=== PATIENT | male | born 1970 | race African-American/Black ===

== ENCOUNTER 2016-10-10 11:04 | Inpatient (IN) | payer OTHER ==
[2016-10-10 11:49] VITALS: BMI 25.8
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
[2016-10-10] MEDS ORDERED: P-EPHED 60MG/TRIPROLIDI 2.5MG TABLET PO PRN (13:49)
[2016-10-10] MEDS ORDERED: guaiFENesin/D-METHORPHAN HB 10 ML UNIT-DOSE CUPS PO PRN (13:49)
[2016-10-10] MEDS ORDERED: MENTHOL/PHENOL 1 EACH UD MM PRN (13:49)
[2016-10-10] MEDS ORDERED: LOPERAMIDE HCL 2 MG CAPSULE PO PRN (13:49)
[2016-10-10] MEDS ORDERED: MAGNESIUM CITRATE 300 ML BOTTLE PO PRN (13:49)
[2016-10-10] MEDS ORDERED: MAG HYDROX/AL HYDROX/SIMETH 30 ML UNIT-DOSE CUP PO PRN (13:49)
[2016-10-10] MEDS ORDERED: NICOTINE POLACRILEX 4 MG GUM BUC PRN (13:49)
[2016-10-10] MEDS ORDERED: MAGNESIUM HYDROX 2400MG/30ML ORAL SUSPENSION 30 ML CUP PO PRN (13:49)
[2016-10-10] MEDS ORDERED: TUBERCULIN PPD 5 TU/0.1ML VIAL ID ONE (15:52)
[2016-10-10] MEDS: NICOTINE 21 MG/24 HOURS TOPICAL PATCH TD SCH (15:55)
[2016-10-10] MEDS ORDERED: DRONABINOL 2.5 MG CAPSULE PO SCH (17:00)
[2016-10-10] MEDS: INSULIN SLIDING SCALE (NOVOLOG) 1 VIAL SQ SCH ×2 (17:03→21:28)
[2016-10-10] MEDS ORDERED: INSULIN (NOVOLOG) ASPART 100 UNITS/ML 10ML VIAL ONE ×2 (17:03→21:28)
[2016-10-10] MEDS: valACYclovir HCL 500 MG TABLET (FP) PO SCH (17:05)
[2016-10-10 20:01] LABS: MCH 27.4 pg (25.7-33.7); MCHC 33.5 g/dl (32.0-35.9); MEAN CELL VOLUME 81.6 fl (80-96); MEAN PLT VOLUME 10.5 fl (7.5-11.1); PLATELET COUNT 163 K/MM3 (134-434); WHITE BLOOD COUNT 3.5 K/mm3 (4.0-10.0)
[2016-10-10 20:05] LABS: URINE APPEARANCE CLEAR; URINE BILIRUBIN NEGATIVE (NEGATIVE); URINE BLOOD NEGATIVE (NEGATIVE); URINE COLOR LTYELLOW; URINE GLUCOSE (UA) 3+ (NEGATIVE); URINE KETONE TRACE (NEGATIVE); URINE LEUK ESTERASE NEGATIVE (NEGATIVE); URINE NITRITE NEGATIVE (NEGATIVE); URINE UROBILINOGEN NEGATIVE E.U./dl (0.2-1.0)
[2016-10-10 20:06] LABS: URINE PROTEIN 2+ (NEGATIVE)
[2016-10-10 20:10] LABS: URINE MUCUS RARE; URINE WBC 2 /hpf (3-5)
[2016-10-10 20:31] LABS: ALBUMIN 3.7 g/dl (3.4-5.0); ANION GAP 10 (8-16); CALCIUM 9.3 mg/dL (8.5-10.1); CO2 27 mmol/L (21-32); CREATININE 0.9 mg/dL (0.7-1.3); SGOT/AST 23 U/L (15-37); SGPT/ALT 24 U/L (12-78)
[2016-10-10 20:33] LABS: ALK PHOS 116 U/L (45-117); BILIRUBIN,TOTAL 0.4 mg/dL (0.2-1.0); TOT PROT 7.5 g/dl (6.4-8.2)
[2016-10-10 21:05] LABS: GLUCOSE,RANDOM 343 mg/dL (74-106)
[2016-10-10] MEDS: diphenhydrAMINE HCL 50 MG CAPSULE PO PRN (21:29)
[2016-10-10] MEDS: ABACAVIR SULFATE 300 MG TABLET PO SCH (21:29)
[2016-10-10] MEDS: RALTEGRAVIR POTASSIUM 400 MG TAB PO SCH (21:29)
[2016-10-10] MEDS: THIAMINE HCL 100 MG TABLET (FP) PO SCH (21:29)
[2016-10-10] MEDS: INSULIN DETEMIR 100 UNITS/ML MDV SQ SCH (21:30)
[2016-10-11] MEDS: sitaGLIPtin PHOSPHATE 100 MG TABLET (FP) PO SCH (06:44)
[2016-10-11] MEDS: INSULIN SLIDING SCALE (NOVOLOG) 1 VIAL SQ SCH ×4 (06:45→22:30)
[2016-10-11] MEDS ORDERED: INSULIN (NOVOLOG) ASPART 100 UNITS/ML 10ML VIAL ONE ×4 (07:00→23:08)
--- NOTE | 2016-10-11 09:46 | EKG ---
Test Reason : Blood Pressure : / mmHG Vent. Rate : 076 BPM Atrial Rate : 076 BPM P-R Int : 154 ms QRS Dur : 098 ms QT Int : 386 ms P-R-T Axes : 036 046 044 degrees QTc Int : 434 ms NORMAL SINUS RHYTHM NONSPECIFIC T WAVE ABNORMALITY ABNORMAL ECG NO PREVIOUS ECGS AVAILABLE Confirmed by MADHU JOHNSON MD ([id number]) on 10/11/2016 9:45:35 AM Referred By: Criselda MELTON Confirmed By:MADHU JOHNSON MD
[2016-10-11] MEDS: PRENATAL VITAMINS W/ FOLIC ACID TABLET (FP) PO SCH (09:51)
[2016-10-11] MEDS: ABACAVIR SULFATE 300 MG TABLET PO SCH ×2 (09:53→22:25)
[2016-10-11] MEDS: RALTEGRAVIR POTASSIUM 400 MG TAB PO SCH ×2 (09:53→22:25)
[2016-10-11] MEDS: valACYclovir HCL 500 MG TABLET (FP) PO SCH (09:53)
[2016-10-11] MEDS: NICOTINE 21 MG/24 HOURS TOPICAL PATCH TD SCH (09:54)
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
[2016-10-11] MEDS: GABAPENTIN 100 MG CAPSULE (FP) PO SCH (22:25)
[2016-10-11] MEDS: THIAMINE HCL 100 MG TABLET (FP) PO SCH (22:25)
[2016-10-11] MEDS: INSULIN DETEMIR 100 UNITS/ML MDV SQ SCH (22:31)
[2016-10-11] MEDS: hydrOXYzine PAMOATE 50 MG CAPSULE (FP) PO PRN (22:32)
[2016-10-12] MEDS ORDERED: INSULIN (NOVOLOG) ASPART 100 UNITS/ML 10ML VIAL ONE ×2 (05:56→22:57)
[2016-10-12] MEDS: INSULIN SLIDING SCALE (NOVOLOG) 1 VIAL SQ SCH ×4 (06:25→21:22)
[2016-10-12] MEDS: GABAPENTIN 100 MG CAPSULE (FP) PO SCH ×3 (06:25→21:17)
[2016-10-12] MEDS: sitaGLIPtin PHOSPHATE 100 MG TABLET (FP) PO SCH (06:25)
[2016-10-12] MEDS: hydrOXYzine PAMOATE 50 MG CAPSULE (FP) PO PRN ×2 (06:26→21:18)
[2016-10-12] MEDS: NICOTINE 21 MG/24 HOURS TOPICAL PATCH TD SCH (09:42)
[2016-10-12] MEDS: PRENATAL VITAMINS W/ FOLIC ACID TABLET (FP) PO SCH (09:42)
[2016-10-12] MEDS: ABACAVIR SULFATE 300 MG TABLET PO SCH ×2 (09:42→21:17)
[2016-10-12] MEDS: RALTEGRAVIR POTASSIUM 400 MG TAB PO SCH ×2 (09:42→21:17)
[2016-10-12] MEDS: valACYclovir HCL 500 MG TABLET (FP) PO SCH (09:42)
[2016-10-12] MEDS: THIAMINE HCL 100 MG TABLET (FP) PO SCH (21:17)
[2016-10-12] MEDS: INSULIN DETEMIR 100 UNITS/ML MDV SQ SCH (21:22)
[2016-10-13] MEDS: sitaGLIPtin PHOSPHATE 100 MG TABLET (FP) PO SCH (06:09)
[2016-10-13] MEDS: GABAPENTIN 100 MG CAPSULE (FP) PO SCH ×3 (06:10→21:13)
[2016-10-13] MEDS ORDERED: INSULIN (NOVOLOG) ASPART 100 UNITS/ML 10ML VIAL ONE ×3 (06:56→18:11)
[2016-10-13] MEDS: INSULIN SLIDING SCALE (NOVOLOG) 1 VIAL SQ SCH ×4 (07:00→21:11)
[2016-10-13] MEDS: IBUPROFEN 400 MG TABLET (FP) PO PRN ×2 (09:06→21:13)
[2016-10-13] MEDS: ABACAVIR SULFATE 300 MG TABLET PO SCH ×2 (09:55→21:13)
[2016-10-13] MEDS: valACYclovir HCL 500 MG TABLET (FP) PO SCH (09:55)
[2016-10-13] MEDS: RALTEGRAVIR POTASSIUM 400 MG TAB PO SCH ×2 (09:55→21:13)
[2016-10-13] MEDS: PRENATAL VITAMINS W/ FOLIC ACID TABLET (FP) PO SCH (09:56)
[2016-10-13] MEDS: NICOTINE 21 MG/24 HOURS TOPICAL PATCH TD SCH (09:56)
[2016-10-13] MEDS: ACETAMINOPHEN 325 MG TABLET (FP) PO PRN (09:58)
[2016-10-13] MEDS: hydrOXYzine PAMOATE 50 MG CAPSULE (FP) PO PRN ×2 (16:41→21:13)
[2016-10-13] MEDS: THIAMINE HCL 100 MG TABLET (FP) PO SCH (21:13)
[2016-10-13] MEDS: INSULIN DETEMIR 100 UNITS/ML MDV SQ SCH (21:15)
[2016-10-14] MEDS: INSULIN SLIDING SCALE (NOVOLOG) 1 VIAL SQ SCH ×4 (06:43→21:21)
[2016-10-14] MEDS: GABAPENTIN 100 MG CAPSULE (FP) PO SCH ×3 (06:48→21:18)
[2016-10-14] MEDS: sitaGLIPtin PHOSPHATE 100 MG TABLET (FP) PO SCH (06:48)
[2016-10-14] MEDS ORDERED: PT OWN MED DRAWER 7, Y5N ONE (10:12)
[2016-10-14] MEDS: PRENATAL VITAMINS W/ FOLIC ACID TABLET (FP) PO SCH (11:08)
[2016-10-14] MEDS: RALTEGRAVIR POTASSIUM 400 MG TAB PO SCH ×2 (11:08→21:18)
[2016-10-14] MEDS: valACYclovir HCL 500 MG TABLET (FP) PO SCH (11:08)
[2016-10-14] MEDS: NICOTINE 21 MG/24 HOURS TOPICAL PATCH TD SCH (11:09)
[2016-10-14] MEDS: ABACAVIR SULFATE 300 MG TABLET PO SCH ×2 (11:09→21:18)
[2016-10-14] MEDS: ACETAMINOPHEN 325 MG TABLET (FP) PO PRN ×2 (11:12→21:24)
[2016-10-14] MEDS: hydrOXYzine PAMOATE 50 MG CAPSULE (FP) PO PRN ×2 (11:13→21:24)
--- NOTE | 2016-10-14 11:37 | PN ---
[facility] Progress Note Note: anusol hc cream for hemorrhoids,avoid constipation
[2016-10-14] MEDS ORDERED: INSULIN (NOVOLOG) ASPART 100 UNITS/ML 10ML VIAL ONE ×2 (11:45→22:40)
[2016-10-14] MEDS: HYDROCORTISONE 2.5% TOPICAL CREAM 30 GM TUBE TP SCH ×2 (14:19→21:18)
[2016-10-14] MEDS: IBUPROFEN 400 MG TABLET (FP) PO PRN (18:24)
[2016-10-14] MEDS: THIAMINE HCL 100 MG TABLET (FP) PO SCH (21:18)
[2016-10-14] MEDS: INSULIN DETEMIR 100 UNITS/ML MDV SQ SCH (21:21)
[2016-10-15] MEDS: GABAPENTIN 100 MG CAPSULE (FP) PO SCH ×3 (06:16→21:27)
[2016-10-15] MEDS: sitaGLIPtin PHOSPHATE 100 MG TABLET (FP) PO SCH (06:16)
[2016-10-15] MEDS: INSULIN SLIDING SCALE (NOVOLOG) 1 VIAL SQ SCH ×4 (06:17→21:26)
[2016-10-15] MEDS ORDERED: INSULIN (NOVOLOG) ASPART 100 UNITS/ML 10ML VIAL ONE ×3 (06:59→17:05)
[2016-10-15] MEDS: IBUPROFEN 400 MG TABLET (FP) PO PRN ×2 (08:44→16:57)
[2016-10-15] MEDS: ABACAVIR SULFATE 300 MG TABLET PO SCH ×2 (10:12→21:27)
[2016-10-15] MEDS: valACYclovir HCL 500 MG TABLET (FP) PO SCH (10:12)
[2016-10-15] MEDS: PRENATAL VITAMINS W/ FOLIC ACID TABLET (FP) PO SCH (10:13)
[2016-10-15] MEDS: NICOTINE 21 MG/24 HOURS TOPICAL PATCH TD SCH (10:13)
[2016-10-15] MEDS: RALTEGRAVIR POTASSIUM 400 MG TAB PO SCH ×2 (10:13→21:27)
[2016-10-15] MEDS: HYDROCORTISONE 2.5% TOPICAL CREAM 30 GM TUBE TP SCH ×2 (10:15→21:29)
[2016-10-15] MEDS: ACETAMINOPHEN 325 MG TABLET (FP) PO PRN ×2 (10:16→21:28)
[2016-10-15] MEDS: hydrOXYzine PAMOATE 50 MG CAPSULE (FP) PO PRN (21:27)
[2016-10-15] MEDS: THIAMINE HCL 100 MG TABLET (FP) PO SCH (21:27)
[2016-10-15] MEDS: INSULIN DETEMIR 100 UNITS/ML MDV SQ SCH (21:29)
[2016-10-16] MEDS: GABAPENTIN 100 MG CAPSULE (FP) PO SCH ×3 (06:18→21:16)
[2016-10-16] MEDS: sitaGLIPtin PHOSPHATE 100 MG TABLET (FP) PO SCH (06:18)
[2016-10-16] MEDS: INSULIN SLIDING SCALE (NOVOLOG) 1 VIAL SQ SCH ×4 (06:18→21:15)
[2016-10-16] MEDS: PRENATAL VITAMINS W/ FOLIC ACID TABLET (FP) PO SCH (09:54)
[2016-10-16] MEDS: ABACAVIR SULFATE 300 MG TABLET PO SCH ×2 (09:54→21:16)
[2016-10-16] MEDS: RALTEGRAVIR POTASSIUM 400 MG TAB PO SCH ×2 (09:54→21:16)
[2016-10-16] MEDS: HYDROCORTISONE 2.5% TOPICAL CREAM 30 GM TUBE TP SCH ×2 (09:55→21:17)
[2016-10-16] MEDS: NICOTINE 21 MG/24 HOURS TOPICAL PATCH TD SCH (09:55)
[2016-10-16] MEDS: valACYclovir HCL 500 MG TABLET (FP) PO SCH (09:55)
[2016-10-16] MEDS: IBUPROFEN 400 MG TABLET (FP) PO PRN (09:57)
[2016-10-16] MEDS ORDERED: INSULIN (NOVOLOG) ASPART 100 UNITS/ML 10ML VIAL ONE ×2 (11:46→22:06)
[2016-10-16] MEDS: THIAMINE HCL 100 MG TABLET (FP) PO SCH (21:16)
[2016-10-16] MEDS: INSULIN DETEMIR 100 UNITS/ML MDV SQ SCH (21:17)
[2016-10-17] MEDS: sitaGLIPtin PHOSPHATE 100 MG TABLET (FP) PO SCH (06:05)
[2016-10-17] MEDS: GABAPENTIN 100 MG CAPSULE (FP) PO SCH ×3 (06:05→21:27)
[2016-10-17] MEDS: INSULIN SLIDING SCALE (NOVOLOG) 1 VIAL SQ SCH ×4 (06:05→21:25)
[2016-10-17] MEDS ORDERED: INSULIN (NOVOLOG) ASPART 100 UNITS/ML 10ML VIAL ONE ×5 (06:46→21:24)
[2016-10-17] MEDS: PRENATAL VITAMINS W/ FOLIC ACID TABLET (FP) PO SCH (10:03)
[2016-10-17] MEDS: HYDROCORTISONE 2.5% TOPICAL CREAM 30 GM TUBE TP SCH ×2 (10:03→21:29)
[2016-10-17] MEDS: ABACAVIR SULFATE 300 MG TABLET PO SCH ×2 (10:03→21:27)
[2016-10-17] MEDS: valACYclovir HCL 500 MG TABLET (FP) PO SCH (10:03)
[2016-10-17] MEDS: RALTEGRAVIR POTASSIUM 400 MG TAB PO SCH ×2 (10:03→21:27)
[2016-10-17] MEDS: NICOTINE 21 MG/24 HOURS TOPICAL PATCH TD SCH (10:04)
[2016-10-17] MEDS: IBUPROFEN 400 MG TABLET (FP) PO PRN ×2 (14:14→21:26)
[2016-10-17] MEDS: hydrOXYzine PAMOATE 50 MG CAPSULE (FP) PO PRN (21:27)
[2016-10-17] MEDS: THIAMINE HCL 100 MG TABLET (FP) PO SCH (21:27)
[2016-10-17] MEDS: INSULIN DETEMIR 100 UNITS/ML MDV SQ SCH (21:29)
[2016-10-18] MEDS: GABAPENTIN 100 MG CAPSULE (FP) PO SCH ×3 (05:51→21:28)
[2016-10-18] MEDS ORDERED: INSULIN (NOVOLOG) ASPART 100 UNITS/ML 10ML VIAL ONE ×4 (06:08→22:26)
[2016-10-18] MEDS: INSULIN SLIDING SCALE (NOVOLOG) 1 VIAL SQ SCH ×4 (06:39→21:27)
[2016-10-18] MEDS: sitaGLIPtin PHOSPHATE 100 MG TABLET (FP) PO SCH (06:41)
[2016-10-18] MEDS: valACYclovir HCL 500 MG TABLET (FP) PO SCH (09:48)
[2016-10-18] MEDS: PRENATAL VITAMINS W/ FOLIC ACID TABLET (FP) PO SCH (09:48)
[2016-10-18] MEDS: ABACAVIR SULFATE 300 MG TABLET PO SCH ×2 (09:48→21:28)
[2016-10-18] MEDS: RALTEGRAVIR POTASSIUM 400 MG TAB PO SCH ×2 (09:48→21:28)
[2016-10-18] MEDS: HYDROCORTISONE 2.5% TOPICAL CREAM 30 GM TUBE TP SCH ×2 (09:48→21:28)
[2016-10-18] MEDS: NICOTINE 21 MG/24 HOURS TOPICAL PATCH TD SCH (09:49)
[2016-10-18] MEDS: IBUPROFEN 400 MG TABLET (FP) PO PRN ×2 (09:50→21:31)
[2016-10-18] MEDS: DOCUSATE SODIUM 100 MG CAPSULE (FP) PO SCH ×2 (14:20→21:28)
[2016-10-18] MEDS ORDERED: INSULIN DETEMIR 100 UNITS/ML MDV SQ ONE (17:03)
[2016-10-18] MEDS: INSULIN DETEMIR 100 UNITS/ML MDV SQ SCH (21:27)
[2016-10-18] MEDS: THIAMINE HCL 100 MG TABLET (FP) PO SCH (21:29)
[2016-10-18] MEDS: hydrOXYzine PAMOATE 50 MG CAPSULE (FP) PO PRN (21:31)
[2016-10-19] MEDS: INSULIN SLIDING SCALE (NOVOLOG) 1 VIAL SQ SCH ×4 (06:14→23:38)
[2016-10-19] MEDS: sitaGLIPtin PHOSPHATE 100 MG TABLET (FP) PO SCH (06:14)
[2016-10-19] MEDS: GABAPENTIN 100 MG CAPSULE (FP) PO SCH ×3 (06:14→21:38)
[2016-10-19] MEDS: DOCUSATE SODIUM 100 MG CAPSULE (FP) PO SCH ×3 (06:14→21:38)
[2016-10-19] MEDS ORDERED: INSULIN (NOVOLOG) ASPART 100 UNITS/ML 10ML VIAL ONE ×2 (06:49→16:55)
[2016-10-19] MEDS: ABACAVIR SULFATE 300 MG TABLET PO SCH ×2 (09:45→21:38)
[2016-10-19] MEDS: HYDROCORTISONE 2.5% TOPICAL CREAM 30 GM TUBE TP SCH ×2 (09:45→23:14)
[2016-10-19] MEDS: PRENATAL VITAMINS W/ FOLIC ACID TABLET (FP) PO SCH (09:45)
[2016-10-19] MEDS: NICOTINE 21 MG/24 HOURS TOPICAL PATCH TD SCH (09:45)
[2016-10-19] MEDS: RALTEGRAVIR POTASSIUM 400 MG TAB PO SCH ×2 (09:45→21:38)
[2016-10-19] MEDS: valACYclovir HCL 500 MG TABLET (FP) PO SCH (09:45)
[2016-10-19] MEDS: IBUPROFEN 400 MG TABLET (FP) PO PRN ×2 (09:46→21:40)
[2016-10-19] MEDS: THIAMINE HCL 100 MG TABLET (FP) PO SCH (21:38)
[2016-10-19] MEDS: hydrOXYzine PAMOATE 50 MG CAPSULE (FP) PO PRN (21:40)
[2016-10-19] MEDS: INSULIN DETEMIR 100 UNITS/ML MDV SQ SCH (23:16)
[2016-10-20] MEDS: sitaGLIPtin PHOSPHATE 100 MG TABLET (FP) PO SCH (06:31)
[2016-10-20] MEDS: DOCUSATE SODIUM 100 MG CAPSULE (FP) PO SCH ×3 (06:31→21:20)
[2016-10-20] MEDS: INSULIN SLIDING SCALE (NOVOLOG) 1 VIAL SQ SCH ×4 (06:31→21:19)
[2016-10-20] MEDS: GABAPENTIN 100 MG CAPSULE (FP) PO SCH ×3 (06:31→21:21)
[2016-10-20] MEDS ORDERED: INSULIN (NOVOLOG) ASPART 100 UNITS/ML 10ML VIAL ONE ×4 (06:49→21:19)
[2016-10-20] MEDS: valACYclovir HCL 500 MG TABLET (FP) PO SCH (10:00)
[2016-10-20] MEDS: HYDROCORTISONE 2.5% TOPICAL CREAM 30 GM TUBE TP SCH ×2 (10:01→21:19)
[2016-10-20] MEDS: PRENATAL VITAMINS W/ FOLIC ACID TABLET (FP) PO SCH (10:01)
[2016-10-20] MEDS: RALTEGRAVIR POTASSIUM 400 MG TAB PO SCH ×2 (10:01→21:20)
[2016-10-20] MEDS: IBUPROFEN 400 MG TABLET (FP) PO PRN ×2 (10:02→21:20)
[2016-10-20] MEDS: ABACAVIR SULFATE 300 MG TABLET PO SCH ×2 (10:04→21:21)
[2016-10-20] MEDS: NICOTINE 21 MG/24 HOURS TOPICAL PATCH TD SCH (10:04)
[2016-10-20] MEDS: THIAMINE HCL 100 MG TABLET (FP) PO SCH (21:20)
[2016-10-20] MEDS: hydrOXYzine PAMOATE 50 MG CAPSULE (FP) PO PRN (21:21)
[2016-10-20] MEDS: INSULIN DETEMIR 100 UNITS/ML MDV SQ SCH (22:13)
[2016-10-21] MEDS ORDERED: INSULIN (NOVOLOG) ASPART 100 UNITS/ML 10ML VIAL ONE ×4 (05:42→21:01)
[2016-10-21] MEDS: DOCUSATE SODIUM 100 MG CAPSULE (FP) PO SCH ×3 (05:43→21:27)
[2016-10-21] MEDS: GABAPENTIN 100 MG CAPSULE (FP) PO SCH ×3 (05:43→21:27)
[2016-10-21] MEDS: INSULIN SLIDING SCALE (NOVOLOG) 1 VIAL SQ SCH ×4 (06:53→21:30)
[2016-10-21] MEDS: sitaGLIPtin PHOSPHATE 100 MG TABLET (FP) PO SCH (06:53)
[2016-10-21] MEDS: HYDROCORTISONE 2.5% TOPICAL CREAM 30 GM TUBE TP SCH ×2 (10:11→21:27)
[2016-10-21] MEDS: ABACAVIR SULFATE 300 MG TABLET PO SCH ×2 (10:11→21:31)
[2016-10-21] MEDS: valACYclovir HCL 500 MG TABLET (FP) PO SCH (10:11)
[2016-10-21] MEDS: RALTEGRAVIR POTASSIUM 400 MG TAB PO SCH ×2 (10:11→21:27)
[2016-10-21] MEDS: NICOTINE 21 MG/24 HOURS TOPICAL PATCH TD SCH (10:11)
[2016-10-21] MEDS: PRENATAL VITAMINS W/ FOLIC ACID TABLET (FP) PO SCH (10:11)
[2016-10-21] MEDS: THIAMINE HCL 100 MG TABLET (FP) PO SCH (21:27)
[2016-10-21] MEDS: hydrOXYzine PAMOATE 50 MG CAPSULE (FP) PO PRN (21:29)
[2016-10-21] MEDS: INSULIN DETEMIR 100 UNITS/ML MDV SQ SCH (22:22)
[2016-10-22] MEDS: diphenhydrAMINE HCL 50 MG CAPSULE PO PRN (01:36)
[2016-10-22] MEDS: GABAPENTIN 100 MG CAPSULE (FP) PO SCH ×3 (05:54→21:19)
[2016-10-22] MEDS: DOCUSATE SODIUM 100 MG CAPSULE (FP) PO SCH ×3 (05:54→21:18)
[2016-10-22] MEDS ORDERED: INSULIN (NOVOLOG) ASPART 100 UNITS/ML 10ML VIAL ONE ×4 (06:24→20:56)
[2016-10-22] MEDS: sitaGLIPtin PHOSPHATE 100 MG TABLET (FP) PO SCH (06:40)
[2016-10-22] MEDS: INSULIN SLIDING SCALE (NOVOLOG) 1 VIAL SQ SCH ×4 (06:40→21:23)
[2016-10-22] MEDS: valACYclovir HCL 500 MG TABLET (FP) PO SCH (09:48)
[2016-10-22] MEDS: HYDROCORTISONE 2.5% TOPICAL CREAM 30 GM TUBE TP SCH ×2 (09:48→21:18)
[2016-10-22] MEDS: ABACAVIR SULFATE 300 MG TABLET PO SCH ×2 (09:48→21:19)
[2016-10-22] MEDS: RALTEGRAVIR POTASSIUM 400 MG TAB PO SCH ×2 (09:48→21:18)
[2016-10-22] MEDS: PRENATAL VITAMINS W/ FOLIC ACID TABLET (FP) PO SCH (09:48)
[2016-10-22] MEDS: NICOTINE 21 MG/24 HOURS TOPICAL PATCH TD SCH (09:49)
[2016-10-22] MEDS: hydrOXYzine PAMOATE 50 MG CAPSULE (FP) PO PRN (09:50)
[2016-10-22] MEDS: FLUCONAZOLE 100 MG TABLET (UD) PO SCH (14:12)
[2016-10-22] MEDS: TOLNAFTATE 1% CREAM 15 GM TUBE TP SCH ×2 (14:13→21:21)
[2016-10-22] MEDS: INSULIN DETEMIR 100 UNITS/ML MDV SQ SCH (21:24)
[2016-10-22] MEDS: THIAMINE HCL 100 MG TABLET (FP) PO SCH (21:35)
[2016-10-23] MEDS: hydrOXYzine PAMOATE 50 MG CAPSULE (FP) PO PRN ×2 (03:38→19:57)
[2016-10-23] MEDS: sitaGLIPtin PHOSPHATE 100 MG TABLET (FP) PO SCH (06:19)
[2016-10-23] MEDS: DOCUSATE SODIUM 100 MG CAPSULE (FP) PO SCH ×3 (06:19→21:02)
[2016-10-23] MEDS: INSULIN SLIDING SCALE (NOVOLOG) 1 VIAL SQ SCH ×4 (06:19→21:02)
[2016-10-23] MEDS: GABAPENTIN 100 MG CAPSULE (FP) PO SCH (06:19)
[2016-10-23] MEDS ORDERED: INSULIN (NOVOLOG) ASPART 100 UNITS/ML 10ML VIAL ONE ×4 (06:39→20:25)
[2016-10-23] MEDS: RALTEGRAVIR POTASSIUM 400 MG TAB PO SCH ×2 (09:57→21:02)
[2016-10-23] MEDS: valACYclovir HCL 500 MG TABLET (FP) PO SCH (09:57)
[2016-10-23] MEDS: ABACAVIR SULFATE 300 MG TABLET PO SCH ×2 (09:57→21:01)
[2016-10-23] MEDS: FLUCONAZOLE 100 MG TABLET (UD) PO SCH (09:58)
[2016-10-23] MEDS: NICOTINE 21 MG/24 HOURS TOPICAL PATCH TD SCH (09:58)
[2016-10-23] MEDS: PRENATAL VITAMINS W/ FOLIC ACID TABLET (FP) PO SCH (09:58)
[2016-10-23] MEDS: HYDROCORTISONE 2.5% TOPICAL CREAM 30 GM TUBE TP SCH ×2 (10:00→21:34)
[2016-10-23] MEDS: TOLNAFTATE 1% CREAM 15 GM TUBE TP SCH ×2 (10:00→21:35)
--- NOTE | 2016-10-23 11:55 | PN ---
Psychiatric Progress Note Vital Signs: Vital Signs Period Temp Pulse Resp BP Sys/Malik Pulse Ox Last 24 Hr 97.9 F 83 18-18 136/78 Date of Session: 10/23/16 Chief Complaint:: progress update HPI: Patient is addressing alcohol, nicotine dependence comorbid substance induced anxiety disorder. ROS: HIV+ since 1986, DM medically managed Current Medications: Active Medications Generic Name Dose Route Start Last Admin Trade Name Freq PRN Reason Stop Dose Admin Abacavir Sulfate 300 mg 10/10/16 22:00 10/23/16 09:57 Ziagen - PO 300 mg BID TERESA Administration Acetaminophen 650 mg 10/10/16 13:49 10/15/16 21:28 Tylenol - PO 650 mg Q4H PRN Administration PAIN Al Hydroxide/Mg Hydroxide 30 ml 10/10/16 13:49 10/21/16 03:45 Mylanta Oral Suspension - PO 30 ml Q6H PRN Administration DYSPEPSIA Diphenhydramine HCl 50 mg 10/10/16 13:49 10/22/16 01:36 Benadryl - PO 50 mg HSMR1 PRN Administration INSOMNIA Docusate Sodium 100 mg 10/18/16 14:00 10/23/16 06:19 Colace - PO 100 mg TID TERESA Administration Eucalyptus/Menthol/Phenol/Sorbitol 1 each 10/10/16 13:49 Cepastat Lozenge - MM Q4H PRN SORE THROAT Fluconazole 100 mg 10/22/16 13:48 10/23/16 09:58 Diflucan - PO 100 mg DAILY TERESA Administration Gabapentin 300 mg 10/23/16 11:39 Neurontin - PO TID TERESA Guaifenesin 10 ml 10/10/16 13:49 Robitussin Dm - PO Q6H PRN COUGH Hydrocortisone 1 applic 10/14/16 11:45 10/23/16 10:00 Anusol 2.5% Hc Cream - TP Not Given BID TERESA Hydroxyzine Pamoate 50 mg 10/11/16 14:05 10/23/16 03:38 Vistaril - PO 50 mg Q4H PRN Administration ANXIETY Ibuprofen 400 mg 10/10/16 13:49 10/20/16 21:20 Motrin - PO 400 mg Q6H PRN Administration SEVERE PAIN Insulin Aspart 1 vial 10/10/16 16:30 10/23/16 06:19 Novolog Vial Sliding Scale - SQ 4 unit ACHS TERESA Administration Protocol Insulin Detemir 70 units 10/10/16 22:00 10/22/16 21:24 Levemir Vial SQ 70 unit HS TERESA Administration Lamivudine 300 mg 10/11/16 10:00 10/23/16 09:58 Epivir - PO 300 mg DAILY TERESA Administration Loperamide HCl 4 mg 10/10/16 13:49 10/15/16 06:18 Imodium - PO 4 mg Q6H PRN Administration DIARRHEA Magnesium Citrate 300 ml 10/10/16 13:49 Citroma - PO Q48H PRN CONSTIPATION Magnesium Hydroxide 30 ml 10/10/16 13:49 10/13/16 06:59 Milk Of Magnesia - PO 30 ml DAILY PRN Administration CONSTIPATION Nicotine 21 mg 10/10/16 14:25 10/23/16 09:58 Nicoderm Patch - TD Not Given DAILY TERESA Nicotine Polacrilex 4 mg 10/10/16 13:49 Nicorette Gum - BUC Q2H PRN NICOTINE REPLACEMENT RX Multivit/Folic Acid/Iron 1 tab 10/11/16 10:00 10/23/16 09:58 Vitamins (Sjr) - PO 1 tab DAILY TERESA Administration Pseudoephedrine/Triprolidine 1 combo 10/10/16 13:49 Actifed - PO TID PRN NASAL CONGESTION Raltegravir 400 mg 10/10/16 22:00 10/23/16 09:57 Isentress - PO 400 mg BID TERESA Administration Sitagliptin Phosphate 100 mg 10/11/16 07:00 10/23/16 06:19 Januvia - PO 100 mg DAILY@0700 TERESA Administration Thiamine HCl 100 mg 10/10/16 22:00 10/22/16 21:35 Vitamin B1 - PO 100 mg HS TERESA Administration Tolnaftate 1 applic 10/22/16 13:30 10/23/16 10:00 Tinactin 1% Cream - TP 1 applic BID TERESA Administration Valacyclovir HCl 1,000 mg 10/10/16 16:30 10/23/16 09:57 Valtrex - PO 1,000 mg DAILY TERESA Administration Medication(s) Change(s): add Belsomra 10 mg po hs, increase Gabapentin 300 mg po tid (indications and properties discussed) Current Side Effect: No Lab tests ordered: No Lab tests reviewed: Yes Provider note:: Patient was seen today, he mainly spoke about his interpesonal issues, his complicated relationship. He reports he feels anxious, "high energy ", states he gets upt in the middle of the nights with severe anxiety and unable to get back to sleep. He also discussed his aftercare plans. Ways to reduce anxiety discussed with the patient, psycheducation and supports provided.Treatment plan discussed , he agreed with recommendations, will continue to monitor progress. Total face to face time:: 35 Mental Status Exam - Mental Status Exam Alert and Oriented to: Time, Place, Person Cognitive Function: Good Patient Appearance: Well Groomed Mood: Anxious Affect: Appropriate, Mood Congruent Patient Behavior: Appropriate, Cooperative Speech Pattern: Clear, Appropriate Voice Loudness: Normal Thought Process: Intact, Goal Oriented Thought Disorder: Not Present Hallucinations: Denies Suicidal Ideation: Denies Homicidal Ideation: Denies Insight/Judgement: Fair Sleep: Poorly, Difficulty falling asleep Appetite: Good Muscle strength/Tone: Normal Gait/Station: Normal Psychiatric Treatment Plan - Problem List (1) AIDS (acquired immune deficiency syndrome) Current Visit: Yes (2) Type 2 diabetes mellitus Current Visit: Yes (3) Cocaine dependence Current Visit: Yes (4) Alcohol dependence Current Visit: Yes (5) Substance-induced anxiety disorder Current Visit: Yes
[2016-10-23] MEDS: GABAPENTIN 300 MG CAPSULE (FP) PO SCH ×2 (14:11→21:01)
[2016-10-23] MEDS: INSULIN DETEMIR 100 UNITS/ML MDV SQ SCH (21:02)
[2016-10-23] MEDS: SUVOREXANT 10 MG TABLET PO SCH (21:04)
[2016-10-23] MEDS: THIAMINE HCL 100 MG TABLET (FP) PO SCH (21:35)
[2016-10-24] MEDS: GABAPENTIN 300 MG CAPSULE (FP) PO SCH ×3 (06:09→21:10)
[2016-10-24] MEDS: INSULIN SLIDING SCALE (NOVOLOG) 1 VIAL SQ SCH ×4 (06:09→21:12)
[2016-10-24] MEDS: DOCUSATE SODIUM 100 MG CAPSULE (FP) PO SCH ×3 (06:09→21:11)
[2016-10-24] MEDS: sitaGLIPtin PHOSPHATE 100 MG TABLET (FP) PO SCH (06:09)
[2016-10-24] MEDS ORDERED: INSULIN (NOVOLOG) ASPART 100 UNITS/ML 10ML VIAL ONE ×4 (06:47→21:13)
[2016-10-24] MEDS: RALTEGRAVIR POTASSIUM 400 MG TAB PO SCH ×2 (10:08→21:10)
[2016-10-24] MEDS: PRENATAL VITAMINS W/ FOLIC ACID TABLET (FP) PO SCH (10:08)
[2016-10-24] MEDS: ABACAVIR SULFATE 300 MG TABLET PO SCH ×2 (10:08→21:10)
[2016-10-24] MEDS: valACYclovir HCL 500 MG TABLET (FP) PO SCH (10:08)
[2016-10-24] MEDS: FLUCONAZOLE 100 MG TABLET (UD) PO SCH (10:08)
[2016-10-24] MEDS: HYDROCORTISONE 2.5% TOPICAL CREAM 30 GM TUBE TP SCH ×2 (10:10→21:11)
[2016-10-24] MEDS: NICOTINE 21 MG/24 HOURS TOPICAL PATCH TD SCH (10:11)
[2016-10-24] MEDS: TOLNAFTATE 1% CREAM 15 GM TUBE TP SCH ×2 (10:11→21:11)
[2016-10-24] MEDS: INSULIN DETEMIR 100 UNITS/ML MDV SQ SCH (21:10)
[2016-10-24] MEDS: THIAMINE HCL 100 MG TABLET (FP) PO SCH (21:10)
[2016-10-24] MEDS: hydrOXYzine PAMOATE 50 MG CAPSULE (FP) PO PRN (21:12)
[2016-10-24] MEDS: SUVOREXANT 10 MG TABLET PO SCH (21:14)
[2016-10-25] MEDS: DOCUSATE SODIUM 100 MG CAPSULE (FP) PO SCH ×3 (06:28→21:23)
[2016-10-25] MEDS: sitaGLIPtin PHOSPHATE 100 MG TABLET (FP) PO SCH (06:28)
[2016-10-25] MEDS: GABAPENTIN 300 MG CAPSULE (FP) PO SCH ×3 (06:28→21:24)
[2016-10-25] MEDS: INSULIN SLIDING SCALE (NOVOLOG) 1 VIAL SQ SCH ×4 (06:29→23:22)
[2016-10-25] MEDS ORDERED: INSULIN (NOVOLOG) ASPART 100 UNITS/ML 10ML VIAL ONE ×2 (06:48→11:57)
[2016-10-25] MEDS: valACYclovir HCL 500 MG TABLET (FP) PO SCH (09:59)
[2016-10-25] MEDS: ABACAVIR SULFATE 300 MG TABLET PO SCH ×2 (10:00→21:23)
[2016-10-25] MEDS: TOLNAFTATE 1% CREAM 15 GM TUBE TP SCH ×2 (10:00→21:24)
[2016-10-25] MEDS: RALTEGRAVIR POTASSIUM 400 MG TAB PO SCH ×2 (10:00→21:23)
[2016-10-25] MEDS: HYDROCORTISONE 2.5% TOPICAL CREAM 30 GM TUBE TP SCH ×2 (10:00→21:27)
[2016-10-25] MEDS: FLUCONAZOLE 100 MG TABLET (UD) PO SCH (10:00)
[2016-10-25] MEDS: PRENATAL VITAMINS W/ FOLIC ACID TABLET (FP) PO SCH (10:00)
[2016-10-25] MEDS: NICOTINE 21 MG/24 HOURS TOPICAL PATCH TD SCH (10:00)
[2016-10-25] MEDS: BENZOCAINE 28 GM HEMORRHOIDAL OINTMENT PR PRN (18:32)
[2016-10-25] MEDS: THIAMINE HCL 100 MG TABLET (FP) PO SCH (21:23)
[2016-10-25] MEDS: SUVOREXANT 10 MG TABLET PO SCH (21:24)
[2016-10-25] MEDS: hydrOXYzine PAMOATE 50 MG CAPSULE (FP) PO PRN (21:26)
[2016-10-25] MEDS: INSULIN DETEMIR 100 UNITS/ML MDV SQ SCH (21:27)
[2016-10-26] MEDS: DOCUSATE SODIUM 100 MG CAPSULE (FP) PO SCH ×3 (06:09→21:32)
[2016-10-26] MEDS: sitaGLIPtin PHOSPHATE 100 MG TABLET (FP) PO SCH (06:09)
[2016-10-26] MEDS: GABAPENTIN 300 MG CAPSULE (FP) PO SCH ×3 (06:09→21:32)
[2016-10-26] MEDS ORDERED: INSULIN (NOVOLOG) ASPART 100 UNITS/ML 10ML VIAL ONE ×5 (06:10→21:36)
[2016-10-26] MEDS: INSULIN SLIDING SCALE (NOVOLOG) 1 VIAL SQ SCH ×4 (06:11→21:36)
[2016-10-26] MEDS: ABACAVIR SULFATE 300 MG TABLET PO SCH ×2 (09:43→21:32)
[2016-10-26] MEDS: PRENATAL VITAMINS W/ FOLIC ACID TABLET (FP) PO SCH (09:43)
[2016-10-26] MEDS: RALTEGRAVIR POTASSIUM 400 MG TAB PO SCH ×2 (09:43→21:32)
[2016-10-26] MEDS: FLUCONAZOLE 100 MG TABLET (UD) PO SCH (09:43)
[2016-10-26] MEDS: valACYclovir HCL 500 MG TABLET (FP) PO SCH (09:43)
[2016-10-26] MEDS: BENZOCAINE 28 GM HEMORRHOIDAL OINTMENT PR PRN ×2 (09:44→21:37)
[2016-10-26] MEDS: HYDROCORTISONE 2.5% TOPICAL CREAM 30 GM TUBE TP SCH ×2 (09:45→21:39)
[2016-10-26] MEDS: NICOTINE 21 MG/24 HOURS TOPICAL PATCH TD SCH (09:45)
[2016-10-26] MEDS: TOLNAFTATE 1% CREAM 15 GM TUBE TP SCH ×2 (09:46→22:06)
[2016-10-26] MEDS: THIAMINE HCL 100 MG TABLET (FP) PO SCH (21:32)
[2016-10-26] MEDS: SUVOREXANT 10 MG TABLET PO SCH (21:32)
[2016-10-26] MEDS: INSULIN DETEMIR 100 UNITS/ML MDV SQ SCH (21:33)
[2016-10-26] MEDS: hydrOXYzine PAMOATE 50 MG CAPSULE (FP) PO PRN (21:40)
[2016-10-27] MEDS: DOCUSATE SODIUM 100 MG CAPSULE (FP) PO SCH ×3 (06:04→21:06)
[2016-10-27] MEDS: sitaGLIPtin PHOSPHATE 100 MG TABLET (FP) PO SCH (06:04)
[2016-10-27] MEDS: GABAPENTIN 300 MG CAPSULE (FP) PO SCH ×3 (06:04→21:06)
[2016-10-27] MEDS: INSULIN SLIDING SCALE (NOVOLOG) 1 VIAL SQ SCH ×4 (06:05→21:09)
[2016-10-27] MEDS ORDERED: INSULIN (NOVOLOG) ASPART 100 UNITS/ML 10ML VIAL ONE ×5 (06:07→21:09)
[2016-10-27] MEDS: RALTEGRAVIR POTASSIUM 400 MG TAB PO SCH ×2 (09:49→21:06)
[2016-10-27] MEDS: PRENATAL VITAMINS W/ FOLIC ACID TABLET (FP) PO SCH (09:49)
[2016-10-27] MEDS: valACYclovir HCL 500 MG TABLET (FP) PO SCH (09:49)
[2016-10-27] MEDS: FLUCONAZOLE 100 MG TABLET (UD) PO SCH (09:49)
[2016-10-27] MEDS: NICOTINE 21 MG/24 HOURS TOPICAL PATCH TD SCH (09:50)
[2016-10-27] MEDS: ABACAVIR SULFATE 300 MG TABLET PO SCH ×2 (09:50→21:06)
[2016-10-27] MEDS: TOLNAFTATE 1% CREAM 15 GM TUBE TP SCH ×2 (09:52→21:11)
[2016-10-27] MEDS: BENZOCAINE 28 GM HEMORRHOIDAL OINTMENT PR PRN (09:52)
[2016-10-27] MEDS: HYDROCORTISONE 2.5% TOPICAL CREAM 30 GM TUBE TP SCH ×2 (09:52→21:11)
[2016-10-27] MEDS: THIAMINE HCL 100 MG TABLET (FP) PO SCH (21:06)
[2016-10-27] MEDS: SUVOREXANT 10 MG TABLET PO SCH (21:06)
[2016-10-27] MEDS: INSULIN DETEMIR 100 UNITS/ML MDV SQ SCH (21:07)
[2016-10-28 05:55] VITALS: TEMP 97.8
[2016-10-28] MEDS: sitaGLIPtin PHOSPHATE 100 MG TABLET (FP) PO SCH (06:07)
[2016-10-28] MEDS: GABAPENTIN 300 MG CAPSULE (FP) PO SCH (06:07)
[2016-10-28] MEDS: DOCUSATE SODIUM 100 MG CAPSULE (FP) PO SCH (06:07)
[2016-10-28] MEDS ORDERED: INSULIN (NOVOLOG) ASPART 100 UNITS/ML 10ML VIAL ONE ×2 (06:08→06:30)
[2016-10-28] MEDS: INSULIN SLIDING SCALE (NOVOLOG) 1 VIAL SQ SCH ×2 (06:24→10:10)
[2016-10-28] MEDS ORDERED: PT OWN MED DRAWER 7, Y5N ONE (08:31)
--- NOTE | 2016-10-28 09:57 | PN ---
Psychiatric Progress Note Vital Signs: Vital Signs Period Temp Pulse Resp BP Sys/Malik Pulse Ox Last 24 Hr 97.8 F 85 18-18 139/81 Date of Session: 10/28/16 Chief Complaint:: discharge visit HPI: Patient is addressing alcohol, nicotine dependence comorbid substance induced anxiety disorder. ROS: HIV+ since 1986, DM medically managed Current Medications: Active Medications Generic Name Dose Route Start Last Admin Trade Name Freq PRN Reason Stop Dose Admin Abacavir Sulfate 300 mg 10/10/16 22:00 10/27/16 21:06 Ziagen - PO 300 mg BID TERESA Administration Acetaminophen 650 mg 10/10/16 13:49 10/15/16 21:28 Tylenol - PO 650 mg Q4H PRN Administration PAIN Al Hydroxide/Mg Hydroxide 30 ml 10/10/16 13:49 10/21/16 03:45 Mylanta Oral Suspension - PO 30 ml Q6H PRN Administration DYSPEPSIA Benzocaine 1 applic 10/25/16 17:39 10/27/16 09:52 Americaine Ointment - [place] 1 applic PRN PRN Administration PAIN Diphenhydramine HCl 50 mg 10/10/16 13:49 10/22/16 01:36 Benadryl - PO 50 mg HSMR1 PRN Administration INSOMNIA Docusate Sodium 100 mg 10/18/16 14:00 10/28/16 06:07 Colace - PO 100 mg TID TERESA Administration Eucalyptus/Menthol/Phenol/Sorbitol 1 each 10/10/16 13:49 Cepastat Lozenge - MM Q4H PRN SORE THROAT Fluconazole 100 mg 10/22/16 13:48 10/27/16 09:49 Diflucan - PO 100 mg DAILY TERESA Administration Gabapentin 300 mg 10/23/16 14:00 10/28/16 06:07 Neurontin - PO 300 mg TID TERESA Administration Guaifenesin 10 ml 10/10/16 13:49 Robitussin Dm - PO Q6H PRN COUGH Hydrocortisone 1 applic 10/14/16 11:45 10/27/16 21:11 Anusol 2.5% Hc Cream - TP Not Given BID TERESA Hydroxyzine Pamoate 50 mg 10/11/16 14:05 10/26/16 21:40 Vistaril - PO 50 mg Q4H PRN Administration ANXIETY Ibuprofen 400 mg 10/10/16 13:49 10/20/16 21:20 Motrin - PO 400 mg Q6H PRN Administration SEVERE PAIN Insulin Aspart 1 vial 10/10/16 16:30 10/28/16 06:24 Novolog Vial Sliding Scale - SQ 4 unit ACHS TERESA Administration Protocol Insulin Detemir 70 units 10/10/16 22:00 10/27/16 21:07 Levemir Vial SQ 70 unit HS TERESA Administration Lamivudine 300 mg 10/11/16 10:00 10/27/16 09:49 Epivir - PO 300 mg DAILY TERESA Administration Loperamide HCl 4 mg 10/10/16 13:49 10/15/16 06:18 Imodium - PO 4 mg Q6H PRN Administration DIARRHEA Magnesium Citrate 300 ml 10/10/16 13:49 Citroma - PO Q48H PRN CONSTIPATION Magnesium Hydroxide 30 ml 10/10/16 13:49 10/13/16 06:59 Milk Of Magnesia - PO 30 ml DAILY PRN Administration CONSTIPATION Nicotine 21 mg 10/10/16 14:25 10/27/16 09:50 Nicoderm Patch - TD Not Given DAILY [facility] Nicotine Polacrilex 4 mg 10/10/16 13:49 Nicorette Gum - BUC Q2H PRN NICOTINE REPLACEMENT RX Multivit/Folic Acid/Iron 1 tab 10/11/16 10:00 10/27/16 09:49 Vitamins (Sjr) - PO 1 tab DAILY TERESA Administration Pseudoephedrine/Triprolidine 1 combo 10/10/16 13:49 Actifed - PO TID PRN NASAL CONGESTION Raltegravir 400 mg 10/10/16 22:00 10/27/16 21:06 Isentress - PO 400 mg BID TERESA Administration Sitagliptin Phosphate 100 mg 10/11/16 07:00 10/28/16 06:07 Januvia - PO 100 mg DAILY@0700 TERESA Administration Thiamine HCl 100 mg 10/10/16 22:00 10/27/16 21:06 Vitamin B1 - PO 100 mg HS TERESA Administration Tolnaftate 1 applic 10/22/16 13:30 10/27/16 21:11 Tinactin 1% Cream - TP Not Given BID TERESA Valacyclovir HCl 1,000 mg 10/10/16 16:30 10/27/16 09:49 Valtrex - PO 1,000 mg DAILY TERESA Administration Current Side Effect: No Lab tests ordered: No Lab tests reviewed: Yes Provider note:: Patient has completed today his treatment and met his goals, will continue to address his issues at [facility] Dependency outpatient treatment program. He gained insights into his addiction, understands the implications and consequences on his physical, mental health and importnace to achieve and maintain sobriety. Patient continues to finding that Neurontin being effective, he feels much better, less anxious. Scripts provided for 30 days, patient is stable for discharge. Total face to face time:: 35 Mental Status Exam - Mental Status Exam Alert and Oriented to: Time, Place, Person Cognitive Function: Good Patient Appearance: Well Groomed Mood: Hopeful Affect: Appropriate, Mood Congruent Patient Behavior: Appropriate, Cooperative Speech Pattern: Clear, Appropriate Voice Loudness: Normal Thought Process: Intact, Goal Oriented Thought Disorder: Not Present Hallucinations: Denies Suicidal Ideation: Denies Homicidal Ideation: Denies Insight/Judgement: Fair Sleep: Fair Appetite: Fair Muscle strength/Tone: Normal Gait/Station: Normal Psychiatric Treatment Plan - Problem List (1) AIDS (acquired immune deficiency syndrome) Current Visit: Yes (2) Type 2 diabetes mellitus Current Visit: Yes (3) Cocaine dependence Current Visit: Yes (4) Alcohol dependence Current Visit: Yes (5) Substance-induced anxiety disorder Current Visit: Yes
[2016-10-28] MEDS: ABACAVIR SULFATE 300 MG TABLET PO SCH (10:45)
[2016-10-28] MEDS: FLUCONAZOLE 100 MG TABLET (UD) PO SCH (10:45)
[2016-10-28] MEDS: PRENATAL VITAMINS W/ FOLIC ACID TABLET (FP) PO SCH (10:45)
[2016-10-28] MEDS: valACYclovir HCL 500 MG TABLET (FP) PO SCH (10:45)
[2016-10-28] MEDS: HYDROCORTISONE 2.5% TOPICAL CREAM 30 GM TUBE TP SCH (10:46)
[2016-10-28] MEDS: TOLNAFTATE 1% CREAM 15 GM TUBE TP SCH (10:46)
[2016-10-28] MEDS: NICOTINE 21 MG/24 HOURS TOPICAL PATCH TD SCH (10:46)
[2016-10-28] MEDS: RALTEGRAVIR POTASSIUM 400 MG TAB PO SCH (10:46)
[2016-10-28 10:59] VITALS: BP 137/99; PULSE 80
== END 2016-10-28 11:10 | disposition home or self-care (01) | DRG 895 ==
LOC: YASAS 11:04 → Y5N 12:37
PROVIDERS: ADMIT Psychiatry & Neurology Psychiatry; ATTEND Psychiatry & Neurology Psychiatry
PROC: HZ42ZZZ Group Counseling for Substance Abuse Treatment, Cognitive-Behavioral (ICD-10-PCS; principal; 2016-10-10)
DX: F10.20 Alcohol dependence, uncomplicated (principal); B20 Human immunodeficiency virus [HIV] disease; F14.20 Cocaine dependence, uncomplicated; F19.280 Other psychoactive substance dependence with psychoactive substance-induced anxiety disorder; F17.210 Nicotine dependence, cigarettes, uncomplicated; E11.9 Type 2 diabetes mellitus without complications; K64.8 Other hemorrhoids; Z79.4 Long term (current) use of insulin; Z86.73 Personal history of transient ischemic attack (TIA), and cerebral infarction without residual deficits; Z87.438 Personal history of other diseases of male genital organs
CPT/HCPCS: 36415; 80053; 81003; 81015; 85027; 85660; 86593; 93005; 93010